=== PATIENT | male | born 1990 | race Caucasian/White ===

== ENCOUNTER 2018-10-14 18:49 | Emergency (ER) | payer BC ==
--- NOTE | 2018-10-14 19:13 | EDM.PDOC ---
ED HPI GENERAL MEDICAL PROBLEM - General Chief Complaint: General Stated Complaint: POSS STD Time Seen by Provider: 10/14/18 19:08 Source of Information: Reports: Patient, RN Notes Reviewed - History of Present Illness INITIAL COMMENTS - FREE TEXT/NARRATIVE: 27-year-old male comes in with concerns about possible STD. He did have unprotected sex 2 days ago, worried about possible STD. He currently has no symptoms. No voiding dysuria discharge, fever chills. - Related Data Allergies Allergy/AdvReac Type Severity Reaction Status Date / Time No Known Allergies Allergy Verified 10/14/18 19:05 Home Meds: Home Meds . [No Known Home Meds] 10/14/18 [History] ED ROS GENERAL - Review of Systems Review Of Systems: See Below Constitutional: Denies: Fever, Chills HEENT: Reports: No Symptoms Respiratory: Denies: Shortness of Breath Cardiovascular: Denies: Chest Pain GI/Abdominal: Denies: Abdominal Pain : Reports: Other (No rash or other lesions present). Denies: Discharge, Dysuria, Frequency, Pain Musculoskeletal: Reports: No Symptoms Skin: Reports: No Symptoms ED EXAM, GENERAL - Physical Exam Exam: See Below General Appearance: Alert, No Apparent Distress Throat/Mouth: Normal Inspection Head: No: Facial Swelling Neck: Supple, Full Range of Motion Respiratory/Chest: No Respiratory Distress Extremities: Normal Inspection Neurological: Alert, No Motor/Sensory Deficits Skin Exam: Warm, Dry, Normal Color, No Rash Course - Vital Signs Last Recorded V/S: Last Vital Signs Temp 97.6 F 10/14/18 18:59 Pulse 79 10/14/18 18:59 Resp 18 10/14/18 18:59 BP 143/93 H 10/14/18 18:59 Pulse Ox 98 10/14/18 18:59 - Orders/Labs/Meds Labs: Laboratory Tests 10/14/18 Range/Units 19:23 C trachomatis DNA (PCR) Not detected N gonorrhoeae DNA (PCR) Not detected Meds: Medications Discontinued Medications Generic Name Dose Route Start Last Admin Trade Name Freq PRN Reason Stop Dose Admin Ceftriaxone Sodium 250 mg 10/14/18 19:58 10/14/18 20:07 Rocephin IM 10/14/18 19:59 250 mg ONETIME ONE Administration Departure - Departure Time of Disposition: 20:00 Disposition: Home, Self-Care 01 Condition: Fair Clinical Impression: Concern about STD in male without diagnosis - Discharge Information Instructions: Sexually Transmitted Disease Referrals: PCP,None [Primary Care Provider] - Forms: ED Department Discharge Additional Instructions: Given given Rocephin 250 mg IM while here in the ED which covers for gonorrhea. Prescription provided for Zithromax which will cover for chlamydia. Take that this evening. You can get the prescription filled at [facility]. Results are not back for the STD testing that has been submitted to lab. I will call you if either of those test comes back positive but the treatment we have giving you this evening will cover for both gonorrhea and chlamydia.
[2018-10-14] MEDS ORDERED: cefTRIAXone 250 MG Vial IM ONE (19:58)
[2018-10-14 21:38] LABS: C. TRACHOMATIS BY PCR NOT DETECTED; N. GONORRHOEAE BY PCR NOT DETECTED
== END 2018-10-14 20:11 | disposition home or self-care (01) ==
LOC: JD.ED 18:49
DX: Z20.2 Contact with and (suspected) exposure to infections with a predominantly sexual mode of transmission (principal)
CPT/HCPCS: 87491; 87591; 96372; 99283; J0696

== ENCOUNTER 2021-07-26 16:51 | Emergency (ER) | payer SELFPAY ==
[2021-07-26] MEDS ORDERED: Sodium Chloride 0.9% 1,000 ML IV ONE (17:23)
[2021-07-26] MEDS ORDERED: Sodium Chloride 0.9% 10 ML Syringe FLUSH PRN (17:23)
[2021-07-26] MEDS ORDERED: Ketorolac 30 MG/ML SDV IVPUSH ONE (17:23)
--- NOTE | 2021-07-26 17:59 | EDM.PDOC ---
ED HPI GENERAL MEDICAL PROBLEM - General Chief Complaint: Abdominal Pain Stated Complaint: abdominal pain Time Seen by Provider: 07/26/21 17:03 Source of Information: Reports: Patient History Limitations: Reports: No Limitations - History of Present Illness INITIAL COMMENTS - FREE TEXT/NARRATIVE: 30-year-old male presents the emergency department today with complaints of abdominal discomfort. Patient states it is just above the umbilical area. Patient states that it is intermittent and comes and goes and is a cramp-like pain. States that initially this started about 2 weeks ago and did not seek treatment for it. He states he has been working many hours on the [employer] so he is just tried to ignore it. States he has been more constipated lately however he did have a bowel movement about 2 hours ago and states this was normal. Denies any recent fever, chills, nausea, vomiting or diarrhea. He states that approximately a month ago he did have unprotected sex and initially the first time he voided he did have burning noted with urination however he states that since that time he has not had any symptoms however he is concerned he may have an STI. He states he is otherwise healthy and does not take any prescription medications. He does smoke about 1 pack of cigarettes per day for the past 20 years. Denies alcohol or recreational drug use. Middle Abdomen Pain Score (Numeric/FACES): 10 - Related Data Allergies Allergy/AdvReac Type Severity Reaction Status Date / Time No Known Allergies Allergy Verified 10/14/18 19:05 Home Meds: Home Meds . [No Known Home Meds] 10/14/18 [History] Past Medical History - Past Health History Medical/Surgical History: Denies Medical/Surgical History Social & Family History - Tobacco Use Tobacco Use Status *Q: Current Every Day Tobacco User Years of Tobacco use: 10 Packs/Tins Daily: 1 - Caffeine Use Caffeine Use: Reports: Coffee, Energy Drinks - Recreational Drug Use Recreational Drug Use: No ED ROS GENERAL - Review of Systems Review Of Systems: Comprehensive ROS is negative, except as noted in HPI. ED EXAM, GI/ABD - Physical Exam Exam: See Below Exam Limited By: No Limitations General Appearance: Alert, WD/WN, Mild Distress Ears: Normal External Exam, Hearing Grossly Normal Nose: Normal Inspection Throat/Mouth: Normal Inspection, Normal Lips, Normal Voice, No Airway Compromise Head: Atraumatic Neck: Normal Inspection, Supple Respiratory/Chest: No Respiratory Distress, Lungs Clear, Normal Breath Sounds, No Accessory Muscle Use, Chest Non-Tender Cardiovascular: Normal Peripheral Pulses, Regular Rate, Rhythm, No Edema, No Murmur GI/Abdominal Exam: Normal Bowel Sounds, Soft, No Distention, Tender (In all 4 quadrants with palpation) (Male) Exam: Deferred Rectal (Males) Exam: Deferred Back Exam: Normal Inspection Extremities: Normal Inspection, Normal Range of Motion Neurological: Alert, Oriented, Normal Cognition Psychiatric: Normal Affect, Normal Mood Skin Exam: Warm, Dry, Intact, Normal Color, No Rash Lymphatic: No Adenopathy Course - Vital Signs Text/Narrative:: As stated above, patient presents with abdominal discomfort just above the umbilicus. Describes as a cramping type pain that started approximately 2 weeks ago. He has had some issues with constipation however he states he did have a normal bowel movement today. Patient is hemodynamically stable at the time of my exam. Abdomen is soft however tender with palpation in all 4 quadrants. Bowel sounds are positive x4. I do not appreciate any distention. Remainder physical exam is otherwise unremarkable. Will obtain lab studies to include a CBC, CMP, magnesium and a C-reactive protein. We will obtain a urine sample for chlamydia and gonorrhea. Patient will receive a liter of normal saline wide open as well as Toradol for the abdominal discomfort. Last Recorded V/S: Last Vital Signs Temp 97.5 F 07/26/21 17:10 Pulse 65 07/26/21 17:10 Resp 20 07/26/21 17:10 BP 143/83 H 07/26/21 17:10 Pulse Ox 96 07/26/21 17:10 - Orders/Labs/Meds Orders: Active Orders 24 hr Category Date Time Status Sodium Chloride 0.9% [Saline Flush] Med 07/26/21 17:23 Active 10 ml FLUSH ASDIRECTED PRN Saline Lock Insert [OM.PC] Stat Oth 07/26/21 17:23 Ordered Medication Orders Sodium Chloride (Sodium Chloride 0.9% 10 Ml Syringe) 10 ml FLUSH ASDIRECTED PRN PRN Reason: Keep Vein Open Last Admin: 07/26/21 18:04 Dose: 10 ml Documented by: GRACE Labs: Laboratory Tests 07/26/21 07/26/21 07/26/21 Range/Units 18:00 18:00 18:00 WBC 8.06 (4.23-9.07) K/mm3 RBC 5.21 (4.63-6.08) M/mm3 Hgb 15.9 (13.7-17.5) gm/dl Hct 46.5 (40.1-51.0) % MCV 89.3 (79.0-92.2) fl MCH 30.5 (25.7-32.2) pg MCHC 34.2 (32.2-35.5) g/dl RDW Std Deviation 40.5 (35.1-43.9) fL Plt Count 308 (163-337) K/mm3 MPV 9.4 (9.4-12.3) fl Neut % (Auto) 59.1 (34.0-67.9) % Lymph % (Auto) 28.8 (21.8-53.1) % [place] % (Auto) 9.2 (5.3-12.2) % Eos % (Auto) 2.6 (0.8-7.0) Baso % (Auto) 0.2 (0.1-1.2) % Neut # (Auto) 4.76 (1.78-5.38) K/mm3 Lymph # (Auto) 2.32 (1.32-3.57) K/mm3 [place] # (Auto) 0.74 (0.30-0.82) K/mm3 Eos # (Auto) 0.21 (0.04-0.54) K/mm3 Baso # (Auto) 0.02 (0.01-0.08) K/mm3 Sodium 138 (136-145) mEq/L Potassium 3.7 (3.5-5.1) mEq/L Chloride 104 (98-107) mEq/L Carbon Dioxide 25 (21-32) mEq/L Anion Gap 12.7 (5-15) BUN 17 (7-18) mg/dL Creatinine 1.0 (0.7-1.3) mg/dL Est Cr Clr Drug Dosing 106.05 mL/min Estimated GFR (MDRD) > 60 (>60) mL/min BUN/Creatinine Ratio 17.0 (14-18) Glucose 134 H (70-99) mg/dL Calcium 8.6 (8.5-10.1) mg/dL Magnesium 2.1 (1.8-2.4) mg/dL Total Bilirubin 0.4 (0.2-1.0) mg/dL AST 20 (15-37) U/L ALT 45 (16-63) U/L Alkaline Phosphatase 88 (46-116) U/L C-Reactive Protein <0.2 (<1.0) mg/dL Total Protein 7.3 (6.4-8.2) g/dl Albumin 4.2 (3.4-5.0) g/dl Globulin 3.1 gm/dL Albumin/Globulin Ratio 1.4 (1-2) C trachomatis DNA (PCR) Not detected N gonorrhoeae DNA (PCR) Not detected Meds: Medications Generic Name Dose Route Start Last Admin Trade Name Freq PRN Reason Stop Dose Admin Sodium Chloride 10 ml 07/26/21 17:23 07/26/21 18:04 Sodium Chloride 0.9% 10 Ml Syringe FLUSH 10 ml ASDIRECTED PRN Administration Keep Vein Open Discontinued Medications Generic Name Dose Route Start Last Admin Trade Name Freq PRN Reason Stop Dose Admin Sodium Chloride 1,000 mls @ 999 mls/hr 07/26/21 17:23 07/26/21 18:05 Normal Saline IV 07/26/21 18:23 999 mls/hr ONETIME ONE Administration Ketorolac Tromethamine 30 mg 07/26/21 17:23 07/26/21 18:04 Ketorolac 30 Mg/Ml Sdv IVPUSH 07/26/21 17:24 30 mg ONETIME ONE Administration Magnesium Citrate 296 ml 07/26/21 20:54 Magnesium Citrate Solution 296 Ml Bottle PO 07/26/21 20:55 ONETIME ONE - Re-Assessments/Exams Free Text/Narrative Re-Assessment/Exam: 07/26/21 19:02 Radiologist impression supine view of the abdomen: Bowel gas pattern appears normal. No abnormal calcifications or soft tissue abnormality is seen. Bony structures show slight compression deformity within T12 which is most likely old. Impression: 1. Nothing acute is seen on supine abdominal study. 07/26/21 19:02 Hematology and chemistries are completely unremarkable. C-reactive protein less than 0.2 07/26/21 20:55 Chlamydia and gonorrhea are not detected. Patient will be given one half bottle of Citroma to drink prior to discharge. Recommend he drink the other half bottle of Citroma in 3 hours time if he has not had a good bowel movement. Departure - Departure Time of Disposition: 20:55 Disposition: Home, Self-Care 01 Condition: Good Clinical Impression: Constipation Qualifiers: Constipation type: unspecified constipation type Qualified Code(s): K59.00 - Constipation, unspecified - Discharge Information Referrals: PCP,None [Primary Care Provider] - Forms: ED Department Discharge Additional Instructions: You were seen in the emergency department today with complaints of generalized abdominal discomfort. Lab studies were completed which were all unremarkable. X-ray of the abdomen was completed and did show some stool in the colon which is likely the cause of your abdominal discomfort. You were also tested for chlamydia and gonorrhea and these were negative. While in the emergency department you were given one half bottle of Citroma to drink. This should produce a bowel movement. If you have not had a bowel movement within 3 hours recommend drinking the remaining half bottle of Citroma and you will then have a good bowel movement within 6 hours. Follow-up with your primary care provider if not better. Sepsis Event Note (ED) - Focused Exam Vital Signs: Vital Signs Temp Pulse Resp BP Pulse Ox 07/26/21 17:10 97.5 F 65 20 143/83 H 96 - My Orders Last 24 Hours: My Active Orders 07/26/21 17:23 Sodium Chloride 0.9% [Saline Flush] 10 ml FLUSH ASDIRECTED PRN Saline Lock Insert [OM.PC] Stat - Assessment/Plan Last 24 Hours: My Active Orders 07/26/21 17:23 Sodium Chloride 0.9% [Saline Flush] 10 ml FLUSH ASDIRECTED PRN Saline Lock Insert [OM.PC] Stat
--- NOTE | 2021-07-26 18:48 | CR ---
Abdomen: Supine view of the abdomen was obtained. Comparison: No previous abdominal study. Bowel gas pattern appears normal. No abnormal calcifications or soft tissue abnormality is seen. Bony structures show slight compression deformity within T12 which is most likely old. Impression: 1. Nothing acute is seen on supine abdominal study. Diagnostic code #2
[2021-07-26 20:35] LABS: C. TRACHOMATIS BY PCR NOT DETECTED; N. GONORRHOEAE BY PCR NOT DETECTED
[2021-07-26] MEDS ORDERED: Magnesium Citrate Solution 296 ML Bottle PO ONE (20:54)
== END 2021-07-26 21:05 | disposition home or self-care (01) ==
LOC: JD.ED 16:51
DX: K59.00 Constipation, unspecified (principal); Z72.0 Tobacco use
CPT/HCPCS: 36415; 74018; 80053; 83735; 85025; 86140; 87491; 87591; 96374; 99283; A9270; J1885; J7030

== ENCOUNTER 2021-12-05 20:43 | Emergency (ER) | payer BC ==
[2021-12-05 21:38] LABS: CORONAVIRUS COVID-19 NAA NEGATIVE (NEGATIVE)
== END 2021-12-05 21:59 | disposition home or self-care (01) ==
LOC: JD.ED 20:43
DX: B34.9 Viral infection, unspecified (principal); Z20.822 Contact with and (suspected) exposure to COVID-19
CPT/HCPCS: 0241U; 99283